=== PATIENT | female | born 1995 | race Caucasian/White ===

== ENCOUNTER 2021-03-14 08:32 | Emergency (ER) | payer BC ==
[2021-03-14 09:27] LABS: HEMOGLOBIN 15.6 gm/dl (12.3-15.3); RED BLOOD COUNT 4.98 M/UL (4.00-5.10); WHITE BLOOD COUNT 8.1 K/UL (4.5-11.0)
[2021-03-14 10:08] LABS: BUN/CREATININE RATIO 12 (0-10)
[2021-03-14] MEDS ORDERED: MACROBID 100 M100 MG PO (11:00)
== END 2021-03-14 11:37 | disposition home or self-care (01) ==
LOC: ER1 08:32
PROVIDERS: Physician Assistant
DX: O20.0 Threatened abortion (principal); B37.41 Candidal cystitis and urethritis; Z3A.01 Less than 8 weeks gestation of pregnancy
CPT/HCPCS: 76817; 80053; 81001; 84702; 85025; 86850; 86900; 86901; 96372; 99284; J2790; J2791

== ENCOUNTER → 2021-03-16 | Outpatient (CLI) | payer BC ==
[~2021-03-16] MED LIST: MACROBID 100 M100 MG PO
== END ==
LOC: LAB 11:53
DX: Z32.00 Encounter for pregnancy test, result unknown (principal)
CPT/HCPCS: 36415; 84702

== ENCOUNTER → 2021-11-22 | Day surgery (SDC) | payer BC ==
[~2021-11-22] VITALS: Ht 165.1 cm; Wt 62.1 kg
[~2021-11-22] MED LIST changes: +COLACE 100MG C100 MG PO; +HYDROCODON-ACE1 EAC6 PO; +IBUPROFEN600 MG PO; +PROGESTERONE200 MG PO; +VAZALORE81 MG PO
[2021-11-22 07:09] LABS: HEMOGLOBIN 14.1 gm/dl (12.3-15.3); RED BLOOD COUNT 4.71 M/UL (4.00-5.10); WHITE BLOOD COUNT 6.3 K/UL (4.5-11.0)
== END | disposition home or self-care (01) ==
LOC: OR 06:34
PROVIDERS: Obstetrics & Gynecology
DX: O02.1 Missed abortion (principal); U07.1 COVID-19; Z87.59 Personal history of other complications of pregnancy, childbirth and the puerperium
CPT/HCPCS: 81001; 85025; 86850; 86900; 86901; J1100; J1885; J2250; J2405; J2704; J2790; J2795; J3010; J7120